=== PATIENT | male | born 1985 | race Two or more races ===

== ENCOUNTER → 2016-11-13 | Outpatient (CLI) | payer OTHER ==
--- NOTE | ~2016-11-13 | US49 ---
[facility] A Service [facility] RADIOLOGY TEXT RESULTS PATIENT: AILYN JAUREGUI LOCATION: [facility] : 83 UNIT #: [id number] AGE: [address]: AIMEE MITCHELL APRN SEX: M ORDER DR: [id number] [facility] [address] [place] [place], [place] [address] [id number] O MR#: [id number] Acc #: [id number] NAME: AILYN JAUREGUI : 1985 SEX: M STUDY DATE/TIME: 11/13/2016 8:16 UNIT: [facility] ROOM: STUDY DESCRIPTION: US Extremity Non Vasc Complete Attending Physician: Aimee Mitchell Np Referring Physician: Aimee Mitchell Np Ordering Physician: Aimee Mitchell Np Primary Care Physician: Aimee Mitchell Np MEDICAL IMAGING REPORT This report is preliminary unless electronic signature is present EXAM Left axillary soft tissue ultrasound 11/13/2016 HISTORY Left axillary palpable abnormality for 4 weeks. Physician's history states axillary adenopathy. COMPARISON None. FINDINGS Targeted sonographic imaging was performed of the left axilla at the site of patient's palpable complaint. An oval echogenic nonshadowing 1.1 cm focus is seen about 1-2 cm deep to the skin surface, with sonographic features compatible with a benign lipoma. No pathologic adenopathy is seen. No cystic or fluid - density lesion is identified. IMPRESSION Benign appearing 1.1 cm lipoma in the left axilla is thought to correspond to the patient's palpable complaint. No suspicious or pathologic adenopathy is seen. Findings were discussed with the patient today in the Radiology Department. Dictated by... Stephany Hazel M.D. THIS IS AN ELECTRONICALLY VERIFIED REPORT Stephany Hazel M.D. at 11/15/2016 7:13 AM JOSÉ/luke TD: 11/13/2016 08:52 JOB #: [id number] [facility] A Service [facility] RADIOLOGY TEXT RESULTS PATIENT: AILYN JAUREGUI LOCATION: [facility] : 83 UNIT #: [id number] AGE: [address]: AIMEE MITCHELL APRN SEX: M ORDER DR: MEDICAL IMAGING REPORT Page 1 of 1 COPY
== END | disposition home or self-care (01) ==
LOC: CWCC 08:03
DX: D17.1 Benign lipomatous neoplasm of skin and subcutaneous tissue of trunk (principal)
CPT/HCPCS: 76881